=== PATIENT | female | born 1970 | race Caucasian/White ===

== ENCOUNTER → 2017-07-16 | Outpatient (CLI) | payer SELFPAY ==
--- NOTE | 2017-07-17 08:57 | CT ---
CT Calcium Score Clinical information: 47-year-old female for coronary artery disease risk assessment. Comparison: None. ECG Gating: Prospective Scan range: Thoracic inlet to diaphragm. Findings: Examination quality: Good. Limitation: None. Total calcium score: 5 Total volume score: 13 mm3 Percentile: 75-90 % Artery scores Left main coronary artery: 2 Left anterior descending artery: 2 Left circumflex artery: 0 Right coronary artery: 1 Other findings: Cardiac chambers: Unremarkable. Cardiac valves: Unremarkable. Thoracic aorta: Unremarkable. Lungs: Unremarkable. Upper abdomen: Unremarkable. Impression: Total calcium score 5. This corresponds to minimal identifiable plaque with less than 10% risk of cor onary artery disease. Reported By:
== END ==
LOC: RAD 15:37
PROVIDERS: ATTEND Internal Medicine Cardiovascular Disease
DX: Z13.6 Encounter for screening for cardiovascular disorders (principal)